=== PATIENT | female | born 1950 | race Caucasian/White ===

== ENCOUNTER 2017-03-28 09:24 | Outpatient (CLI) | payer MEDICARE, OTHER | END 2017-03-28 23:59 | disposition home or self-care (01) | LOC: MRI 09:24 | PROVIDERS: ATTEND Specialist | DX: M51.26 Other intervertebral disc displacement, lumbar region (principal); M51.34 Other intervertebral disc degeneration, thoracic region; M47.896 Other spondylosis, lumbar region; M43.17 Spondylolisthesis, lumbosacral region; M48.07 Spinal stenosis, lumbosacral region | CPT/HCPCS: 72146-TC; 72148-TC ==

== ENCOUNTER 2018-01-24 15:32 | Outpatient (CLI) | payer MEDICARE, OTHER | END 2018-01-24 23:59 | disposition home or self-care (01) | LOC: RAD 15:32 | PROVIDERS: ATTEND Surgery | DX: Z01.818 Encounter for other preprocedural examination (principal); R91.8 Other nonspecific abnormal finding of lung field | CPT/HCPCS: 71045-TC ==

== ENCOUNTER 2018-06-20 10:37 | Outpatient (CLI) | payer MEDICARE, OTHER ==
[2018-06-20 11:04] LABS: BASOPHILS % (AUTO) 0.8 % (0.0-2.0); EOSINOPHILS % (AUTO) 3.6 % (0.0-6.0); HEMATOCRIT 39 % (33-45); HEMOGLOBIN 13.4 g/dL (11.5-14.8); LYMPHOCYTES # (AUTO) 1.7 /CMM (0.8-4.8); LYMPHOCYTES % (AUTO) 45.1 % (20.0-44.0); MEAN CORPUSCULAR HGB CONC 34 g/dl (31.0-36.0); MEAN CORPUSCULAR VOLUME 93 fL (82-100); MONOCYTES # (AUTO) 0.3 /CMM (0.1-1.30); NEUTROPHILS # (AUTO) 1.6 /CMM (1.8-8.9); NEUTROPHILS % (AUTO) 41.5 % (43.0-81.0); PLATELET COUNT (AUTO) 179 /CMM (150-450); RED BLOOD CELL COUNT(AUTO) 4.22 MIL/uL (4.0-5.2); WHITE BLOOD COUNT (AUTO) 3.8 K/uL (4.3-11.0)
== END 2018-06-20 23:59 | disposition home or self-care (01) ==
LOC: LAB 10:37
PROVIDERS: ATTEND Specialist
DX: M25.50 Pain in unspecified joint (principal)
CPT/HCPCS: 36415; 85025-TC; 85652-TC; 86431-TC

== ENCOUNTER 2019-04-10 09:03 | Emergency (ER) | payer MEDICARE, OTHER ==
[~2019-04-10] VITALS: Ht 160 cm; Wt 59.0 kg
--- NOTE | 2019-04-10 09:09 | NUR ---
BIB Daughter from Home "Abdominal Pain on/off x1wk worse after eating", TO ER BED 8, HOOKED TO MONITOR, CHANGED TO HOSP GOWN, PROVIDED W WARM BLABKET, AOx4, BREATHING EVEN AND UNLABORED. DR DAVIS AT BEDSIDE
[2019-04-10] MEDS ORDERED: KETOROLAC TROMETHAMINE INJ 30 MG/ML VIAL IV ONE (09:30)
[2019-04-10] MEDS ORDERED: IV NS 0.9% 1,000 ML BAG IV ONE (09:30)
--- NOTE | 2019-04-10 09:37 | NUR ---
US TECH AT BEDSIDE
--- NOTE | 2019-04-10 09:39 | NUR ---
DAUGHTER WOULD LIKE TO WAIT FOR LAB RESULTS AND VENECIA RESULTS BEFORE STARTING IVP AND GIVING MEDICATION, MADE MD AWARE
[2019-04-10 09:51] LABS: BASOPHILS % (AUTO) 1.3 % (0.0-2.0); EOSINOPHILS % (AUTO) 3.9 % (0.0-6.0); HEMATOCRIT 40 % (33-45); HEMOGLOBIN 13.2 g/dL (11.5-14.8); LYMPHOCYTES # (AUTO) 1.5 /CMM (0.8-4.8); LYMPHOCYTES % (AUTO) 39.2 % (20.0-44.0); MEAN CORPUSCULAR HGB CONC 34 g/dl (31.0-36.0); MEAN CORPUSCULAR VOLUME 94 fL (82-100); MONOCYTES # (AUTO) 0.4 /CMM (0.1-1.30); MONOCYTES % (AUTO) 11.1 % (2.0-12.0); NEUTROPHILS # (AUTO) 1.8 /CMM (1.8-8.9); NEUTROPHILS % (AUTO) 44.5 % (43.0-81.0); PLATELET COUNT (AUTO) 191 /CMM (150-450); WHITE BLOOD COUNT (AUTO) 3.9 K/uL (4.3-11.0)
[2019-04-10 09:55] LABS: CALCIUM, SERUM 8.9 mg/dL (8.5-10.1); CREATININE 0.8 mg/dL (0.6-1.3); POTASSIUM 4.4 mmol/L (3.5-5.1)
[2019-04-10 10:00] LABS: APPEARANCE,URINE Clear (CLEAR); BILIRUBIN,URINE Negative (NEGATIVE); BLOOD, URINE Negative Ery/uL (NEGATIVE); COLOR,URINE Yellow (YELLOW); KETONES,URINE Negative (NEGATIVE); LEUKOCYTE ESTERASE ,URINE Negative (NEGATIVE); NITRITE, URINE Negative (NEGATIVE); PH,URINE 8.5 (5.0-8.0); PROTEIN,URINE Negative (NEGATIVE); UGLUCOSE Negative (NEGATIVE); UROBILINOGEN,URINE 0.2 EU/dL (0.2)
--- NOTE | 2019-04-10 10:00 | NUR ---
URINE SAMPLE SENT TO LAB
[2019-04-10 10:01] LABS: ALBUMIN 3.3 g/dL (3.4-5.0); BILIRUBIN,DIRECT 0.2 mg/dL (0.0-0.2); BILIRUBIN,TOTAL 1.1 mg/dL (0.2-1.0); TOTAL PROTEIN, SERUM 7.1 g/dL (6.4-8.2)
--- NOTE | 2019-04-10 12:50 | NUR ---
Patient discharged to home in stable condition. Written and verbal after care instructions given. Patient verbalizes understanding of instruction.
[2019-04-10 12:51] VITALS: BP 119/68
== END 2019-04-10 12:51 | disposition home or self-care (01) ==
LOC: ER 09:05
DX: K42.9 Umbilical hernia without obstruction or gangrene (principal); E78.00 Pure hypercholesterolemia, unspecified
CPT/HCPCS: 36415; 71045-TC; 76700-TC; 80048-TC; 80076-TC; 81000-TC; 83690-TC; 85025-TC

== ENCOUNTER 2020-03-08 14:43 | Outpatient (CLI) | payer MEDICARE, OTHER | END 2020-03-08 23:59 | disposition home or self-care (01) | LOC: XR 14:43 | DX: M19.012 Primary osteoarthritis, left shoulder (principal); M19.011 Primary osteoarthritis, right shoulder; M81.0 Age-related osteoporosis without current pathological fracture | CPT/HCPCS: 73030-TC ==

== ENCOUNTER 2022-02-12 08:01 | Outpatient (CLI) | payer MEDICARE, OTHER | END 2022-02-12 23:59 | disposition home or self-care (01) | LOC: RAD 08:01 | PROVIDERS: ATTEND Surgery | DX: M19.011 Primary osteoarthritis, right shoulder (principal) | CPT/HCPCS: 73030-TC ==

== ENCOUNTER 2022-07-10 13:24 | Outpatient (CLI) | payer MEDICARE, OTHER | END 2022-07-10 23:59 | disposition home or self-care (01) | LOC: LAB 13:24 | DX: D72.820 Lymphocytosis (symptomatic) (principal); D72.819 Decreased white blood cell count, unspecified | CPT/HCPCS: 36415 ==

== ENCOUNTER 2022-07-10 13:30 | Outpatient (CLI) | payer MEDICARE, OTHER | END 2022-07-10 23:59 | disposition home or self-care (01) | LOC: MRI 13:30 | DX: M19.011 Primary osteoarthritis, right shoulder (principal); M25.411 Effusion, right shoulder; M89.311 Hypertrophy of bone, right shoulder; M25.511 Pain in right shoulder | CPT/HCPCS: 73221-TC ==

== ENCOUNTER 2022-09-21 10:11 | Outpatient (CLI) | payer MEDICARE, OTHER ==
[2022-09-21 15:20] LABS: BILIRUBIN,URINE NEGATIVE (NEGATIVE); COLOR,URINE YELLOW (YELLOW); LEUKOCYTE ESTERASE ,URINE 3+ (NEGATIVE); NITRITE, URINE NEGATIVE (NEGATIVE); PROTEIN,URINE NEGATIVE (NEGATIVE); UGLUCOSE NEGATIVE (NEGATIVE); UROBILINOGEN,URINE 0.2 EU/dL (0.2)
[2022-09-21 15:25] LABS: BACTERIA,URINE 3+ /HPF (None Seen); RBC,URINE 0-2 /HPF (0-2); SQUAMOUS EPITHELIAL CELL,UR 0-2 /HPF (None Seen); WBC,URINE 51-80 /HPF (0-3)
== END 2022-09-21 23:59 | disposition home or self-care (01) ==
LOC: LAB 10:11
PROVIDERS: ATTEND Internal Medicine
DX: R35.0 Frequency of micturition (principal)
CPT/HCPCS: 81001; 87086-TC